=== PATIENT | female | born 1970 | race Hispanic/Latino ===

== ENCOUNTER 2017-04-17 15:14 | Emergency (ER) | payer OTHER ==
--- NOTE | 2017-04-17 15:27 | ED HEAD/FACIAL INJ COMPLAINT ---
History of Present Illness General Chief Complaint: Headache Stated Complaint: HEADACHE Source: patient, family Exam Limitations: no limitations Vital Signs & Intake/Output Vital Signs & Intake/Output Vital Signs Date Time Temp Pulse Resp B/P B/P Pulse O2 O2 Flow FiO2 Mean Ox Delivery Rate 04/17 1535 98.1 80 18 122/64 98 Room Air 04/17 1531 Room Air Allergies Coded Allergies: acetaminophen (From PERCOCET) (Intermediate, "MAKES ME WEIRD" 04/17/17) oxycodone (From PERCOCET) (Intermediate, "MAKES ME WEIRD" 04/17/17) tramadol (Intermediate, "MAKES ME WEIRD" 04/17/17) Reconcile Medications Metoclopramide HCl (Reglan) 10 MG TABLET 1 TAB PO 4 TIMES/DAY PRN HEADQACHE Triage Note: PT BIBA FROM URGENT CARE WITH C/O HEADACHE. PER EMS, PT FELL YESTERDAY AND STRUCK HER HEAD. NO LOC. IT DID NOT BOTHER HER LAST NIGHT, BUT TODAY SHE HAD A SEVERE HEADACHE. +N/-V. TOOK MOTRIN THIS AM WITH NO RELIEF. PT ARRIVES A&O. SUNGLASSES ON. NO C-COLLAR R/T PT REFUSAL DUE TO PREVIOUS FUSION. Triage Nurses Notes Reviewed? yes HPI: Last night patient slipped on a patch of ice and fell backwards and hit her head on the concrete. There is no loss consciousness with the patient felt stunned for a few minutes. This morning she woke up with a severe throbbing headache in the posterior scalp that radiates to the front of her scalp and then radiates down into her neck. Patient does have a history of cervical fusion. Positive photophobia. Positive nausea. Pain is 10 out of 10. Pain is constant. There are no aggravating or mitigating factors. There is no weakness or numbness. There is no blurry vision. There is no floaters. She went to a walk in center and was sent in for evaluation. Past History Medical History Any Pertinent Medical History? see below for history Gastrointestinal: GERD Surgical History Surgical History: hysterectomy, CERVICAL FUSION Psychosocial History Tobacco Use: Never used ETOH Use: occasional use Illicit Drug Use: denies illicit drug use Family History Hx Contributory? No Review of Systems Review of Systems Constitutional: Reports: no symptoms. EENTM: Reports: see HPI. Respiratory: Reports: no symptoms. Cardiovascular: Reports: no symptoms. GI: Reports: see HPI, nausea. Genitourinary: Reports: no symptoms. Musculoskeletal: Reports: see HPI, neck pain. Skin: Reports: no symptoms. Neurological/Psychological: Reports: see HPI, headache. Hematologic/Endocrine: Reports: no symptoms. Immunologic/Allergic: Reports: no symptoms. All Other Systems: Reviewed and Negative Physical Exam Physical Exam General Appearance: well developed/nourished, mild distress Head: atraumatic, normal appearance Eyes: Bilateral: PERRL, EOMI. Ears, Nose, Throat: normal pharynx, normal ENT inspection, hearing grossly normal Neck: normal inspection, supple, tender lateral, tender midline Respiratory: normal breath sounds Cardiovascular: regular rate/rhythm Gastrointestinal: soft, non-tender Back: normal inspection Extremities: normal inspection, normal range of motion, no edema Psychiatric: awake, alert, oriented x 3 Cranial Nerves: normal hearing, normal speech, PERRL Coordination/Gait: normal gait Motor/Sensory: no motor/sensory deficits Skin: intact, normal color, warm/dry Lymphatic: no anterior cervical cam Progress Differential Diagnosis: c-spine injury, ICH, skull fracture Plan of Care: Current Medications Sig/Bright Start time Last Medication Dose Stop Time Status Admin Diphenhydramine HCl 25 MG ONCE ONE 04/17 1699 UNVr (Benadryl) 04/17 170 Metoclopramide HCl 10 MG ONCE ONE 04/17 1700 UNVr (Reglan) 04/17 170 Diagnostic Imaging: Viewed by Me: CT Scan. Discussed w/RAD: CT Scan. Radiology Impression: PATIENT: MANJINDER YING PRESENT AGE: 46 PATIENT ACCOUNT NO: [id number] : 72 LOCATION: [facility] ORDERING PHYSICIAN: Vijay Castle MD SERVICE DATE: 04/17/17 EXAM TYPE: CAT - CT CERV SPINE WO IV CONTRAST; CT HEAD WO IV CONTRAST EXAMINATION: CT HEAD AND CT CERVICAL SPINE WITHOUT CONTRAST. CLINICAL INFORMATION: Fall, neck pain. COMPARISON: None TECHNIQUE: 5 mm thin axial and reformatted 2 mm thin coronal images of brain were obtained. Subsequently 2.5 minutes and axial and reformatted 2 within sagittal and coronal images of cervical spine were obtained. DLP 882. FINDINGS: BRAIN: There is no acute intra-axial, extra-axial bleed, masses or midline shift. The smith to white matter distinction is maintained. The lateral ventricles are symmetrical in size and configuration. No acute infarct in evolution seen. Bone windows reveal no calvarial abnormality. The paranasal sinuses and mastoid air cells are well-aerated. There is no scalp abnormality seen. CERVICAL SPINE: On sagittal reconstructed images there is straightening of cervical lordosis. There is C5-C6 artificial disc with ventral plate traversing ventral C5 and C6 vertebra for disc fusion. Rest of the disc heights, vertebral heights and alignment is normal. There is no acute fracture or dislocation. The prevertebral and paravertebral soft tissues are normal. The lung apices are clear. The thyroid lobes and submandibular glands are symmetrical and normal. IMPRESSION: No acute intracranial process seen. C5 and C6 disc fusion with ventral plating and screws and metallic cage at the disc level. No acute fracture or dislocation seen. There is mild straightening of cervical lordosis likely spasm. DICTATED BY: Carolee MONDRAGON,Zenon DATE/TIME DICTATED: 04/17/171556 CAR REPOSSESSOR:KAROLINA DATE/TIME TRANSCRIBED:04/17/171556 CONFIDENTIAL, DO NOT COPY WITHOUT APPROPRIATE AUTHORIZATION. <Electronically signed in Other Vendor System> SIGNED BY: Carolee MONDRAGON,Zenon 04/17/17 1605 Departure Departure Disposition: HOME OR SELF CARE Condition: Stable Clinical Impression Primary Impression: Head injury Qualifiers: Encounter type: initial encounter Qualified Code: S09.90XA - Unspecified injury of head, initial encounter Secondary Impressions: Concussion Additional Instructions: REUTRN IF SYMPTOMS WORSEN OR FOR ANY CONCERNS Departure Forms: Customer Survey General Discharge Information Prescriptions: Current Visit Scripts Metoclopramide HCl (Reglan) 1 TAB PO 4 TIMES/DAY PRN HEADQACHE #20 TAB
--- NOTE | 2017-04-17 16:09 | CT SCAN REPORT ---
EXAMINATION: CT HEAD AND CT CERVICAL SPINE WITHOUT CONTRAST. CLINICAL INFORMATION: Fall, neck pain. COMPARISON: None TECHNIQUE: 5 mm thin axial and reformatted 2 mm thin coronal images of brain were obtained. Subsequently 2.5 minutes and axial and reformatted 2 within sagittal and coronal images of cervical spine were obtained. DLP 882. FINDINGS: BRAIN: There is no acute intra-axial, extra-axial bleed, masses or midline shift. The smith to white matter distinction is maintained. The lateral ventricles are symmetrical in size and configuration. No acute infarct in evolution seen. Bone windows reveal no calvarial abnormality. The paranasal sinuses and mastoid air cells are well-aerated. There is no scalp abnormality seen. CERVICAL SPINE: On sagittal reconstructed images there is straightening of cervical lordosis. There is C5-C6 artificial disc with ventral plate traversing ventral C5 and C6 vertebra for disc fusion. Rest of the disc heights, vertebral heights and alignment is normal. There is no acute fracture or dislocation. The prevertebral and paravertebral soft tissues are normal. The lung apices are clear. The thyroid lobes and submandibular glands are symmetrical and normal. IMPRESSION: No acute intracranial process seen. C5 and C6 disc fusion with ventral plating and screws and metallic cage at the disc level. No acute fracture or dislocation seen. There is mild straightening of cervical lordosis likely spasm.
[2017-04-17] MEDS ORDERED: REGLAN10 M1 PO (17:02)
[2017-04-17] MEDS ORDERED: CYCLOBENZAPRINE10 M1 PO (17:28)
[2017-04-17 17:34] VITALS: BP 124/62
== END 2017-04-17 17:39 ==
LOC: ERH 15:14
DX: S09.90XA Unspecified injury of head, initial encounter (principal); S06.0X0A Concussion without loss of consciousness, initial encounter; W00.0XXA Fall on same level due to ice and snow, initial encounter; Y92.9 Unspecified place or not applicable; Y93.9 Activity, unspecified
CPT/HCPCS: 96374; 96375; J1885; J2405; J2765